=== PATIENT | female | born 1975 | race Caucasian/White ===

== ENCOUNTER → 2017-12-02 | Day surgery (SDC) | payer BC ==
[~2017-12-02] MED LIST: LIDOCAINE 1% PF 2 ML VIAL. ID; LIDOCAINE 2% PF Vial for OR 5 ML VIAL.; MIDAZOLAM HCL/PF 2 MG/2 ML VIAL. IV; PROPOFOL 20 ML IV; fentaNYL PF VIAL 100 MCG/2 ML VIAL IV
[2017-12-02 13:14] LABS: NEG OBC UR NEG; POS OBC UR POS; U PREG PATIENT NEGATIVE (NEG)
[2017-12-02] MEDS: IV RINGERS,LACTATED 1000ML 1,000 ML IV (13:19)
== END | disposition home or self-care (01) ==
LOC: ENDOS 12:47
DX: K29.50 Unspecified chronic gastritis without bleeding (principal); K21.9 Gastro-esophageal reflux disease without esophagitis; Z80.3 Family history of malignant neoplasm of breast; Z82.49 Family history of ischemic heart disease and other diseases of the circulatory system; Z79.899 Other long term (current) drug therapy; I10 Essential (primary) hypertension; Z85.3 Personal history of malignant neoplasm of breast; M19.90 Unspecified osteoarthritis, unspecified site; Z98.890 Other specified postprocedural states; E03.9 Hypothyroidism, unspecified; Z87.891 Personal history of nicotine dependence
CPT/HCPCS: 43235; 81025; J2001; J2704

== ENCOUNTER → 2017-12-17 | Outpatient (CLI) | payer BC ==
[2017-12-17] MEDS: SINCALIDE 1.5 MCG in IV NORMAL SALINE 50ML 30 ML IV (11:00)
== END | disposition home or self-care (01) ==
LOC: US 10:07
DX: K76.0 Fatty (change of) liver, not elsewhere classified (principal); I10 Essential (primary) hypertension; E03.9 Hypothyroidism, unspecified; K21.9 Gastro-esophageal reflux disease without esophagitis; Z87.891 Personal history of nicotine dependence; Z85.3 Personal history of malignant neoplasm of breast
CPT/HCPCS: 76700; 78226; 96374; 96375; A9537; J2805

== ENCOUNTER → 2018-04-25 | Outpatient (CLI) | payer BC ==
[2017-12-02 14:15] VITALS: BP 143/70
[~2018-04-25] MED LIST changes: +DULO60CA6 PO; -LIDOCAINE 1% PF 2 ML VIAL. ID; -LIDOCAINE 2% PF Vial for OR 5 ML VIAL.; -MIDAZOLAM HCL/PF 2 MG/2 ML VIAL. IV; +PANT20TA2 PO; -PROPOFOL 20 ML IV; +THYR60TA2 PO; -fentaNYL PF VIAL 100 MCG/2 ML VIAL IV
--- NOTE | 2018-04-25 13:51 | RAD ---
Gastric Emptying Study 04/25/2018 Indication: Nausea/ vomiting Procedure: Anterior and posterior projection static images are obtained over the stomach following oral administration of 2 mCi of 99 M technetium sulfur colloid in a solid meal (egg and toast). Time points include an immediate baseline, and 1, 2, 3, and 4 hours post ingestion. Findings: There is progressive emptying of the stomach on sequential images. Percentage retention at... One hour is 67% (normal 34.8-91%). Two hours 28% (normal 2.7-60%). Three hours 1% (normal 0.5-28%). Four hours 1% (normal 0-10%). Impression: Normal 4 hour protocol gastric emptying study. Consensus Recommendations for Gastric Emptying Scintigraphy: A Joint Report of the [employer] and the Society of Nuclear Medicine: J. Nucl. Med. Technol. July 2007 vol. 36 no. 1 44-54 Grading for severity of delayed GE based on the 4-h value: grade 1 (mild): 11?20% retention at 4 h grade 2 (moderate): 21?35% retention at 4 h grade 3 (severe): 36?50% retention at 4 h grade 4 (very severe): >50% retention at 4 h. Electronically signed by: Shade Pal MD (04/25/2018 1:48 PM) [id number]
== END | disposition home or self-care (01) ==
LOC: NM 07:49
PROVIDERS: ATTEND Internal Medicine Gastroenterology
DX: R11.2 Nausea with vomiting, unspecified (principal); I10 Essential (primary) hypertension; J45.909 Unspecified asthma, uncomplicated; Z87.891 Personal history of nicotine dependence
CPT/HCPCS: 78264; A9541

== ENCOUNTER → 2018-05-06 | Day surgery (SDC) | payer BC ==
[~2018-05-06] MED LIST changes: +IV RINGERS,LACTATED 1000ML 1,000 ML IV SCH; +LIDOCAINE 1% PF 2 ML VIAL. ID PRN; +LIDOCAINE 1% PF 2 ML VIAL. ONE; +LISI10TA2 PO; +MIDAZOLAM HCL/PF 2 MG/2 ML VIAL. IV PRN; +PROPOFOL 40 ML IV ONE; +fentaNYL PF VIAL 100 MCG/2 ML VIAL IV PRN
[2018-05-06 10:21] LABS: U PREG PATIENT NEGATIVE (NEG)
[2018-05-06 11:57] VITALS: BP 116/75
--- NOTE | 2018-05-06 12:12 | CONS ---
DATE OF CONSULTATION: 05/06/2018 REFERRING PHYSICIAN: Munira Fajardo. REASON FOR CONSULTATION: Family history of colon cancer familial polyposis. HISTORY OF PRESENT ILLNESS: A 42-year-old female with past medical history significant for breast cancer, diverticular disease of the colon, gastroesophageal reflux disease, seen for interval colon exam. Bowel habits have been regular without diarrhea or bleeding. She does have constipation with continued symptoms and family history. She is here today for further evaluation and care. PAST MEDICAL HISTORY: Hypertension, hypothyroidism, gastroesophageal reflux disease. ALLERGIES: None. MEDICATIONS: Include Cymbalta, lisinopril, pantoprazole and thyroid. FAMILY AND SOCIAL HISTORY: Significant for breast cancer with her mother, hypertension with her mother as well familial polyposis with her brother and colon cancer. PREVIOUS SURGERIES: None. REVIEW OF SYSTEMS: Per records. PHYSICAL EXAMINATION: GENERAL: A well-nourished, well-developed female. VITAL SIGNS: Temperature is 97.2, pulse 98, respirations 20. HEENT: Normocephalic and atraumatic head. Pupils and extraocular muscles are not tested. Sclerae anicteric. NECK: Supple. LUNGS: Clear. CARDIOVASCULAR: Reveals an S1, S2 without S3, S4 or appreciable murmur. ABDOMEN: Soft abdomen, normal bowel sounds without appreciable hepatosplenomegaly. EXTREMITIES: Reveals no cyanosis, clubbing or edema. IMPRESSION AND PLAN: Colorectal screening is warranted at a high risk of familial polyposis and family history of colon cancer with her brother. Risks and benefits have been discussed. The patient is willing to proceed at this time. JAG DE LA CRUZ MD DR: GIOVANNI/nts JOB#: [id number] / [id number]
== END | disposition home or self-care (01) ==
LOC: SURG 09:41
PROVIDERS: ATTEND Internal Medicine Gastroenterology
DX: K57.30 Diverticulosis of large intestine without perforation or abscess without bleeding (principal); K64.0 First degree hemorrhoids; I10 Essential (primary) hypertension; E03.9 Hypothyroidism, unspecified; K21.9 Gastro-esophageal reflux disease without esophagitis; Z85.3 Personal history of malignant neoplasm of breast; Z79.899 Other long term (current) drug therapy; Z82.49 Family history of ischemic heart disease and other diseases of the circulatory system; Z80.3 Family history of malignant neoplasm of breast; Z80.0 Family history of malignant neoplasm of digestive organs
CPT/HCPCS: 45378; 81025; J2704